=== PATIENT | male | born 2000 | race Caucasian/White ===

== ENCOUNTER 2022-04-12 15:37 | Emergency (ER) | payer BC ==
--- NOTE | 2022-04-12 16:11 | ED Physician Documentation ---
History of Present Illness - Stated complaint Stated Complaint: CP,LEFT ARM PX - Chief complaint Chief Complaint: Cardiac - History obtained from History obtained from: Patient - History of Present Illness Timing: How many days ago (2) Pain level max: 6 Pain level now: 0 - Additonal information Additional information: Patient is a 21-year-old male who presents to the emergency department left- sided chest pain. He states that it starts as a shock in his left chest and then spreads to a larger burning area. He states that it resolves with aspirin. The entire incident lasts about 5 minutes. Happened once yesterday and once today. He states this has occurred in the past but usually months apart. No fevers. No chills. No cough. No congestion. Nothing seems to make it better or worse. No recent travel or illnesses. No calf swelling. No history of young coronary disease. No history of blood clots. Review of Systems Ten Systems: 10 systems reviewed and negative Constitutional: denies: Fever, Chills Ears: denies: Ear pain Nose: denies: Rhinorrhea / runny nose, Congestion Throat: denies: Sore throat Cardiac: denies: Palpitations, Pedal edema, Calf pain Respiratory: denies: Dyspnea, Cough GI: denies: Abdominal Pain, Vomiting, Diarrhea Skin: denies: Rash Musculoskeletal: denies: Neck pain, Back pain Neurologic: denies: Headache PD PAST MEDICAL HISTORY - Past Medical History Past Medical History: No - Past Surgical History Past Surgical History: No - Present Medications Home Medications: Ambulatory Orders Medication Instructions Recorded Confirmed No Known Home Medications 04/12/22 04/12/22 - Allergies Allergies/Adverse Reactions: Allergies Allergy/AdvReac Type Severity Reaction Status Date / Time No Known Drug Allergies Allergy Verified 04/12/22 15:52 - Living Situation Living Situation: reports: With family Living Arrangement: reports: At home - Social History Does the pt smoke?: No Does the pt drink ETOH?: No Does the pt have substance abuse?: No - Family History Family history: reports: Non contributory PD ED PE NORMAL - Vitals Vital signs reviewed: Yes - General General: Alert and oriented X 3, No acute distress - HEENT HEENT: PERRL - Neck Neck: Supple, no meningeal sign, No JVD, No bruit - Cardiac Cardiac: RRR, No murmur, No gallop, No rub, Strong equal pulses - Respiratory Respiratory: No respiratory distress, Clear bilaterally - Abdomen Abdomen: Soft, Non tender, Non distended - Derm Derm: Warm and dry - Extremities Extremities: No edema, No calf tenderness / cord - Neuro Neuro: Alert and oriented X 3 - Psych Psych: Normal mood, Normal affect Results - Vitals Vitals: Vital Signs - 24 hr 04/12/22 04/12/22 15:44 17:13 Temperature 36.8 C 37.3 C Heart Rate 64 65 Respiratory 14 16 Rate Blood Pressure 133/75 H 115/76 O2 Saturation 100 100 Oxygen O2 Source Room air - EKG (time done) 1550 Rate: Rate (enter#) (61) Rhythm: NSR [place]: Normal Intervals: Normal [place] QRS: Normal Ischemia: ST elevation c/w repol - Labs Labs: Laboratory Tests 04/12/22 04/12/22 04/12/22 16:18 16:18 16:18 WBC 5.0 RBC 5.30 Hgb 15.3 Hct 46.0 MCV 86.8 MCH 28.9 MCHC 33.3 RDW 11.9 L Plt Count 216 MPV 8.9 Neut # (Auto) 3.1 Lymph # (Auto) 1.3 L [place] # (Auto) 0.5 Eos # (Auto) 0.0 Baso # (Auto) 0.0 Absolute Nucleated RBC 0.00 Nucleated RBC % 0.0 Sodium 135 Potassium 4.1 Chloride 98 L Carbon Dioxide 27 Anion Gap 10.0 BUN 9 Creatinine 0.9 Estimated GFR (MDRD) 108 Glucose 105 H Calcium 9.3 Total Bilirubin 0.6 AST 19 ALT 17 Alkaline Phosphatase 65 Troponin I High Sens < 2.3 L Total Protein 7.5 Albumin 4.3 Globulin 3.2 Albumin/Globulin Ratio 1.3 Lipase 34 - Rads (name of study) cxr Radiology: Final report received, EMP read contemporaneously, See rad report PD MEDICAL DECISION MAKING - ED course Complexity details: reviewed results, re-evaluated patient, considered differential (No ST elevation [place], no aortic dissection, no PE, no tension pneumothorax, no aortic aneurysm), d/w patient ED course: No acute findings on EKG, chest x-ray. Unclear etiology of his symptoms. Asymptomatic currently. No significant lab abnormalities. Symptoms are not consistent with aortic dissection or aneurysm. Not consistent with pulmonary embolism. We will continue supportive care and have him follow-up with his doctor for further care. Patient counseled regarding signs and symptoms for which I believe and urgent re-evaluation would be necessary. Patient with good understanding of and agreement to plan and is comfortable going home at this time This document was made in part using voice recognition software. While efforts are made to proofread this document, sound alike and grammatical errors may occur. Departure - Departure Disposition: 01 Home, Self Care Clinical Impression: Atypical chest pain Condition: Good Instructions: ED Chest Pain Atypical Unkn Cause Follow-Up: your,doctor in 1 week [Other] Comments: Your testing today does not show any acute abnormalities. Please follow-up with your doctor for further care. Your laboratory testing, EKG and chest x-ray do not show any acute abnormalities that would be causing your symptoms. Discharge Date/Time: 04/12/22 17:21
[2022-04-12 16:22] LABS: BASOPHILS % (AUTO) 0.8 %; EOSINOPHILS % (AUTO) 0.8 %; HGB - HEMOGLOBIN 15.3 g/dL (14.0-18.0); LYMPHOCYTES # (AUTO) 1.3 10^3/uL (1.5-3.5); LYMPHOCYTES % (AUTO) 25.6 %; MEAN CORPUSCULAR HEMOGLOBIN 28.9 pg (27.0-31.0); MEAN CORPUSCULAR HGB CONC 33.3 g/dL (32.0-36.0); MEAN CORPUSCULAR VOLUME 86.8 fL (80.0-94.0); MEAN PLATELET VOLUME 8.9 fL (7.4-11.4); MONOCYTES # (AUTO) 0.5 10^3/uL (0.0-1.0); MONOCYTES % (AUTO) 9.9 %; NEUTROPHILS # (AUTO) 3.1 10^3/uL (1.5-6.6); NEUTROPHILS % (AUTO) 62.7 %; PLT - PLATELET COUNT 216 10^3/uL (130-450); RED CELL DISTRIBUTION WIDTH 11.9 % (12.0-15.0)
[2022-04-12 16:41] LABS: ALBUMIN 4.3 g/dL (3.2-5.5); ALBUMIN/GLOBULIN RATIO 1.3 (1.0-2.2); BILIRUBIN,TOTAL 0.6 mg/dL (0.2-1.0); CALCIUM 9.3 mg/dL (8.5-10.3); CREATININE 0.9 mg/dL (0.6-1.2); POTASSIUM 4.1 mmol/L (3.5-5.0); TOTAL PROTEIN 7.5 g/dL (6.7-8.2)
--- NOTE | 2022-04-12 16:41 | XRAY Report ---
PROCEDURE: Chest 1 View X-Ray INDICATIONS: Chest Pain TECHNIQUE: One view of the chest was acquired. COMPARISON: None FINDINGS: Surgical changes and devices: None. Lungs and pleura: No pleural effusions or pneumothorax. Lungs are clear. Mediastinum: Mediastinal contours appear normal. Heart size is normal. Bones and chest wall: No suspicious bony lesions. Overlying soft tissues appear unremarkable. IMPRESSION: No acute cardiopulmonary abnormality. Reviewed by: Jorge Alberto Crawford on 04/12/2022 4:39 PM PDT Approved by: Jorge Alberto Crawford on 04/12/2022 4:39 PM PDT Station ID: [id number]
[2022-04-12 17:14] VITALS: BP 115/76
== END 2022-04-12 17:21 | disposition home or self-care (01) ==
LOC: ED 15:37
DX: R07.89 Other chest pain (principal)
CPT/HCPCS: 36415; 80053; 83690; 84484; 85025; 93005; 99284

== ENCOUNTER 2023-02-18 14:15 | Outpatient (CLI) | payer BC ==
--- NOTE | 2023-02-18 14:41 | XRAY Report ---
PROCEDURE: Chest 2 View X-Ray INDICATIONS: CHEST PAIN TECHNIQUE: 2 views of the chest were acquired. COMPARISON: Chest x-ray 04/12/22 FINDINGS: Surgical changes and devices: None. Lungs and pleura: No pleural effusions or pneumothorax. Lungs are clear. Mediastinum: Mediastinal contours are normal. Heart size is normal. Bones and chest wall: No suspicious bony abnormalities. Soft tissues appear unremarkable. IMPRESSION: No acute pulmonary process. Reviewed by: Imani Brandon MD on 02/18/2023 2:39 PM PDT Approved by: Imani Brandon MD on 02/18/2023 2:39 PM PDT Station ID: [id number]
== END 2023-02-18 14:16 | disposition home or self-care (01) ==
LOC: DI 14:15
PROVIDERS: ATTEND Nurse Practitioner
DX: R07.9 Chest pain, unspecified (principal)